=== PATIENT | female | born 1980 | race Caucasian/White ===

== ENCOUNTER 2020-08-28 08:18 | Outpatient (REF) | payer OTHER, SELFPAY ==
[2020-08-28 11:37] LABS: Estimated Average Glucose 103 mg/dL; Hemoglobin A1c % 5.2 %
[2020-08-28 12:05] LABS: Alanine Aminotransferase 72 U/L (0-31); Albumin Level 4.1 g/dL (3.5-5.0); Alkaline Phosphatase 68 U/L (39-117); Anion Gap 17 (12-20); Aspartate Amino Transferase 43 U/L (5-31); Bilirubin Direct < 0.2 mg/dL (0.0-0.5); Bilirubin Total 0.4 mg/dL (0.0-1.0); Blood Urea Nitrogen 8 mg/dL (9-16); Calcium 9.2 mg/dL (8.4-10.2); Carbon Dioxide 19 mmol/L (22-29); Chloride 106 mmol/L (96-108); Estimated Glomerular Filt Rate > 60; Glucose Random 96 mg/dL (60-115); Potassium 3.9 mmol/L (3.3-5.1); Sodium 138 mmol/L (135-145)
[2020-08-29 11:09] LABS: LDL Cholesterol Direct 77 mg/dL (<100)
== END 2020-08-28 08:19 | disposition home or self-care (01) ==
LOC: HO.HMGCLDS 08:18
PROVIDERS: PCP Internal Medicine; Visit Provider Internal Medicine
DX: E66.9 Obesity, unspecified (principal); E78.9 Disorder of lipoprotein metabolism, unspecified; I10 Essential (primary) hypertension; R79.89 Other specified abnormal findings of blood chemistry
CPT/HCPCS: 36415; 80048; 80076; 83036; 83721

== ENCOUNTER 2020-09-18 09:33 | Outpatient (REF) | payer OTHER, SELFPAY ==
[2020-09-22 12:37] LABS: Fentanyl, Ur NEGATIVE
[2020-09-22 12:38] LABS: Norfentanyl, Ur NEGATIVE
== END 2020-09-18 09:34 | disposition home or self-care (01) ==
LOC: HO.LAB 09:33
PROVIDERS: PCP Internal Medicine; Visit Provider Internal Medicine
DX: F10.20 Alcohol dependence, uncomplicated (principal); R79.89 Other specified abnormal findings of blood chemistry
CPT/HCPCS: 80305; 80354; 80364; 80365; 99202

== ENCOUNTER 2021-04-12 09:10 | Outpatient (REF) | payer OTHER, SELFPAY ==
--- NOTE | ~2021-04-12 | XR_ITS ---
EXAMINATION: XR CHEST CLINICAL INFORMATION: Asthma COMPARISON: Previous chest x-ray most recent October 2019 TECHNIQUE: 2 views of the chest were obtained. FINDINGS: The cardiac and mediastinal contours are stable. There is lower lobe bronchial wall thickening. The lungs are otherwise clear. There is no pleural effusion or pneumothorax. There mild degenerative changes of the spine. XR/XR chest 2V IMPRESSION: Lower lobe bronchial wall thickening. No definite evidence of pneumonia.
== END 2021-04-12 09:11 | disposition home or self-care (01) ==
LOC: HO.HMGCX 09:10
PROVIDERS: PCP Internal Medicine; Visit Provider Internal Medicine
DX: J45.909 Unspecified asthma, uncomplicated (principal)
CPT/HCPCS: 71046

== ENCOUNTER 2021-05-08 13:48 | Outpatient (REF) | payer OTHER, SELFPAY ==
[2021-05-08 16:47] LABS: MANUAL DIFF FLAG NO
[2021-05-08 16:51] LABS: Basophils Absolute Auto 0.1 X10*3/uL (0.0-0.2); Basophils Percent Auto 0.7 % (0-2); Eosinophils Absolute Auto 0.2 X10*3/uL (0.0-0.4); Eosinophils Percent Auto 1.3 % (0-4); Hemoglobin 14.6 g/dl (12.0-16.0); Imm Gran Abs Auto 0.04 X10*3/uL (0.00-0.03); Imm Gran Pct Auto 0.3 % (0.0-0.4); Lymphocytes Absolute Auto 3.4 X10*3/uL (1.2-4.9); Lymphocytes Percent Auto 29.4 % (20-40); Mean Corpuscular HGB Conc 32.4 g/dl (31.0-35.0); Mean Corpuscular Volume 92.6 fL (80.0-98.0); Mean Platelet Volume 12.6 fL (9.4-12.3); Monocytes Percent Auto 8.6 % (2-11); Neutrophils Absolute Auto 6.9 x10*3/uL (2.0-8.3); Neutrophils Percent Auto 59.7 % (45-73); Platelet Count 282 X10*3/uL (160-400); Red Blood Count 4.86 X10*6/uL (4.20-5.50); Red Cell Distribution Width 13.2 % (11.0-16.0); White Blood Count 11.5 X10*3/uL (4.8-10.8)
[2021-05-08 17:31] LABS: Alanine Aminotransferase 115 U/L (0-31); Albumin Level 4.3 g/dL (3.5-5.0); Alkaline Phosphatase 75 U/L (39-117); Anion Gap 15 (12-20); Aspartate Amino Transferase 84 U/L (5-31); Bilirubin Total 1.1 mg/dL (0.0-1.0); Blood Urea Nitrogen 11 mg/dL (9-16); Calcium 10.2 mg/dL (8.4-10.2); Carbon Dioxide 22 mmol/L (22-29); Chloride 106 mmol/L (96-108); Estimated Glomerular Filt Rate > 60; Glucose Random 83 mg/dL (60-115); Potassium 3.8 mmol/L (3.3-5.1); Sodium 139 mmol/L (135-145); Total Protein 7.7 g/dL (6.5-8.0)
[2021-05-08 17:47] LABS: TSH reflex Free T4 2.95 uIU/mL (0.32-4.0)
== END 2021-05-08 13:49 | disposition home or self-care (01) ==
LOC: HO.HMGCLDS 13:48
PROVIDERS: PCP Internal Medicine; Visit Provider Internal Medicine
DX: E66.9 Obesity, unspecified (principal); E78.9 Disorder of lipoprotein metabolism, unspecified; F33.2 Major depressive disorder, recurrent severe without psychotic features; I10 Essential (primary) hypertension; R06.02 Shortness of breath; R79.89 Other specified abnormal findings of blood chemistry; Z91.09 Other allergy status, other than to drugs and biological substances
CPT/HCPCS: 36415; 80053; 84443; 85025

== ENCOUNTER → 2021-05-20 14:25 | Outpatient (BNVA) | payer OTHER, SELFPAY | PROVIDERS: PCP Internal Medicine; Visit Provider Internal Medicine | DX: R06.02 Shortness of breath (principal); R06.83 Snoring; G47.33 Obstructive sleep apnea (adult) (pediatric); E66.9 Obesity, unspecified; Z68.39 Body mass index [BMI] 39.0-39.9, adult | CPT/HCPCS: 99202 ==

== ENCOUNTER → 2021-05-22 08:56 | Outpatient (BNVA) | payer OTHER, SELFPAY | PROVIDERS: PCP Internal Medicine; Visit Provider Dietitian, Registered | DX: E66.9 Obesity, unspecified (principal); Z68.39 Body mass index [BMI] 39.0-39.9, adult | CPT/HCPCS: 97802 ==

== ENCOUNTER 2021-05-23 09:48 | Outpatient (REF) | payer OTHER, SELFPAY ==
--- NOTE | ~2021-05-23 | XR_ITS ---
EXAMINATION: XR CHEST CLINICAL INFORMATION: Cough COMPARISON: 04/12/2021 TECHNIQUE: 2 views of the chest were obtained. FINDINGS: There is no acute finding. Lung naik are grossly clear. The cardiac silhouette is comparable. The hilar structures do not appear pathologically enlarged. There is no effusion. XR/XR chest 2V IMPRESSION: No acute finding.
[2021-05-23 11:09] LABS: MANUAL DIFF FLAG NO
[2021-05-23 11:23] LABS: Basophils Absolute Auto 0.1 X10*3/uL (0.0-0.2); Basophils Percent Auto 1.3 % (0-2); Eosinophils Absolute Auto 0.1 X10*3/uL (0.0-0.4); Eosinophils Percent Auto 1.9 % (0-4); Hematocrit 43.9 % (37.0-47.0); Hemoglobin 14.4 g/dl (12.0-16.0); Imm Gran Abs Auto 0.02 X10*3/uL (0.00-0.03); Imm Gran Pct Auto 0.3 % (0.0-0.4); Lymphocytes Absolute Auto 2.4 X10*3/uL (1.2-4.9); Lymphocytes Percent Auto 33.9 % (20-40); Mean Corpuscular HGB Conc 32.8 g/dl (31.0-35.0); Mean Corpuscular Hemoglobin 30.1 pg (27.0-33.0); Mean Corpuscular Volume 91.6 fL (80.0-98.0); Mean Platelet Volume 12.1 fL (9.4-12.3); Monocytes Absolute Auto 0.6 X10*3/uL (0.1-1.2); Monocytes Percent Auto 8.1 % (2-11); Neutrophils Absolute Auto 3.9 x10*3/uL (2.0-8.3); Neutrophils Percent Auto 54.5 % (45-73); Platelet Count 305 X10*3/uL (160-400); Red Blood Count 4.79 X10*6/uL (4.20-5.50); Red Cell Distribution Width 13.2 % (11.0-16.0); White Blood Count 7.2 X10*3/uL (4.8-10.8)
[2021-05-23 11:46] LABS: Alanine Aminotransferase 63 U/L (0-31); Albumin Level 4.3 g/dL (3.5-5.0); Alkaline Phosphatase 65 U/L (39-117); Anion Gap 15 (12-20); Aspartate Amino Transferase 35 U/L (5-31); Bilirubin Total 0.7 mg/dL (0.0-1.0); Blood Urea Nitrogen 9 mg/dL (9-16); Calcium 9.9 mg/dL (8.4-10.2); Carbon Dioxide 21 mmol/L (22-29); Chloride 108 mmol/L (96-108); Estimated Glomerular Filt Rate > 60; Glucose Random 105 mg/dL (60-115); Potassium 3.8 mmol/L (3.3-5.1); Sodium 140 mmol/L (135-145); Total Protein 7.5 g/dL (6.5-8.0)
== END 2021-05-23 09:49 | disposition home or self-care (01) ==
LOC: HO.HMGCLDS 09:48
PROVIDERS: PCP Internal Medicine; Visit Provider Nurse Practitioner Acute Care
DX: R05.3 Chronic cough (principal)
CPT/HCPCS: 36415; 71046; 80053; 85025

== ENCOUNTER → 2021-06-18 13:38 | Outpatient (REF) | payer OTHER, SELFPAY | LOC: HO.SL 13:38 | PROVIDERS: PCP Internal Medicine; Visit Provider Internal Medicine | DX: G47.33 Obstructive sleep apnea (adult) (pediatric) (principal); R06.02 Shortness of breath; R06.83 Snoring; R40.0 Somnolence | CPT/HCPCS: 95806 ==

== ENCOUNTER → 2021-06-21 11:30 | Outpatient (BNVA) | payer OTHER, SELFPAY | PROVIDERS: PCP Internal Medicine; Visit Provider Dietitian, Registered | DX: E66.9 Obesity, unspecified (principal); Z68.37 Body mass index [BMI] 37.0-37.9, adult | CPT/HCPCS: 97803 ==

== ENCOUNTER → 2021-07-26 11:56 | Outpatient (BNVA) | payer OTHER, SELFPAY | PROVIDERS: PCP Internal Medicine; Visit Provider Dietitian, Registered | DX: E66.9 Obesity, unspecified (principal); Z68.35 Body mass index [BMI] 35.0-35.9, adult; E11.9 Type 2 diabetes mellitus without complications; Z71.3 Dietary counseling and surveillance | CPT/HCPCS: 97803 ==

== ENCOUNTER → 2021-08-13 13:38 | Outpatient (BNVA) | payer OTHER, SELFPAY | PROVIDERS: PCP Internal Medicine; Visit Provider Internal Medicine | DX: G47.33 Obstructive sleep apnea (adult) (pediatric) (principal); E66.9 Obesity, unspecified; Z68.34 Body mass index [BMI] 34.0-34.9, adult; F31.9 Bipolar disorder, unspecified; Z99.89 Dependence on other enabling machines and devices | CPT/HCPCS: 99212 ==

== ENCOUNTER → 2021-09-06 10:48 | Outpatient (BNVA) | payer OTHER, SELFPAY | PROVIDERS: PCP Internal Medicine; Visit Provider Dietitian, Registered | DX: E66.9 Obesity, unspecified (principal); Z68.32 Body mass index [BMI] 32.0-32.9, adult; Z71.3 Dietary counseling and surveillance | CPT/HCPCS: 97803 ==

== ENCOUNTER 2021-10-18 07:07 | Outpatient (REF) | payer OTHER, SELFPAY ==
[2021-10-18 11:55] LABS: Alanine Aminotransferase 51 U/L (0-31); Albumin Level 4.2 g/dL (3.5-5.0); Alkaline Phosphatase 49 U/L (39-117); Anion Gap 17 (12-20); Aspartate Amino Transferase 30 U/L (5-31); Bilirubin Total 0.5 mg/dL (0.0-1.0); Blood Urea Nitrogen 15 mg/dL (9-16); Calcium 9.6 mg/dL (8.4-10.2); Carbon Dioxide 22 mmol/L (22-29); Chloride 107 mmol/L (96-108); Estimated Glomerular Filt Rate > 60; Glucose Random 94 mg/dL (60-115); Potassium 4.3 mmol/L (3.3-5.1); Sodium 142 mmol/L (135-145); Total Protein 7.3 g/dL (6.5-8.0)
[2021-10-20 17:02] LABS: LDL Cholesterol Direct 132 mg/dL (<100)
== END 2021-10-18 07:08 | disposition home or self-care (01) ==
LOC: HO.HMGCLDS 07:07
PROVIDERS: PCP Internal Medicine; Visit Provider Internal Medicine
DX: E66.9 Obesity, unspecified (principal); E78.9 Disorder of lipoprotein metabolism, unspecified; F33.2 Major depressive disorder, recurrent severe without psychotic features; F41.1 Generalized anxiety disorder; I10 Essential (primary) hypertension; R79.89 Other specified abnormal findings of blood chemistry; Z91.09 Other allergy status, other than to drugs and biological substances
CPT/HCPCS: 36415; 80053; 83721

== ENCOUNTER → 2021-12-06 09:41 | Outpatient (BNVA) | payer OTHER, SELFPAY | PROVIDERS: PCP Internal Medicine; Visit Provider Dietitian, Registered | DX: E66.9 Obesity, unspecified (principal); Z68.32 Body mass index [BMI] 32.0-32.9, adult | CPT/HCPCS: 97803 ==

== ENCOUNTER 2022-04-17 12:49 | Outpatient (REF) | payer OTHER, SELFPAY ==
[2022-04-17 15:10] LABS: Alanine Aminotransferase 61 U/L (0-31); Albumin Level 4.4 g/dL (3.5-5.0); Alkaline Phosphatase 54 U/L (39-117); Anion Gap 12 (12-20); Aspartate Amino Transferase 35 U/L (5-31); Bilirubin Total 0.4 mg/dL (0.0-1.0); Blood Urea Nitrogen 11 mg/dL (9-16); Calcium 9.1 mg/dL (8.4-10.2); Carbon Dioxide 22 mmol/L (22-29); Chloride 111 mmol/L (96-108); Estimated Glomerular Filt Rate > 60; Glucose Random 87 mg/dL (60-115); Potassium 3.9 mmol/L (3.3-5.1); Sodium 141 mmol/L (135-145); Total Protein 7.3 g/dL (6.5-8.0)
== END 2022-04-17 12:50 | disposition home or self-care (01) ==
LOC: HO.LAB 12:49
PROVIDERS: PCP Internal Medicine; Visit Provider Internal Medicine
DX: E66.9 Obesity, unspecified (principal); E78.9 Disorder of lipoprotein metabolism, unspecified; F33.2 Major depressive disorder, recurrent severe without psychotic features; F41.1 Generalized anxiety disorder; I10 Essential (primary) hypertension; R79.89 Other specified abnormal findings of blood chemistry; Z91.09 Other allergy status, other than to drugs and biological substances; Z71.6 Tobacco abuse counseling
CPT/HCPCS: 36415; 80053; 97803

== ENCOUNTER 2023-10-15 08:18 | Outpatient (AMB) | payer OTHER, SELFPAY ==
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
== END 2023-10-15 09:14 | disposition home or self-care (01) ==
LOC: HO.HMGC 08:18
PROVIDERS: PCP Internal Medicine; Visit Provider Internal Medicine
DX: S82.892A Other fracture of left lower leg, initial encounter for closed fracture (principal); S82.142D Displaced bicondylar fracture of left tibia, subsequent encounter for closed fracture with routine healing; S62.102A Fracture of unspecified carpal bone, left wrist, initial encounter for closed fracture; S83.207A Unspecified tear of unspecified meniscus, current injury, left knee, initial encounter; I10 Essential (primary) hypertension; Z91.09 Other allergy status, other than to drugs and biological substances; F41.1 Generalized anxiety disorder; E78.9 Disorder of lipoprotein metabolism, unspecified; R79.89 Other specified abnormal findings of blood chemistry; K21.9 Gastro-esophageal reflux disease without esophagitis; J30.89 Other allergic rhinitis; Z09 Encounter for follow-up examination after completed treatment for conditions other than malignant neoplasm
CPT/HCPCS: 99214

== ENCOUNTER 2024-01-27 13:51 | Outpatient (AMB) | payer OTHER, SELFPAY ==
[2024-01-27 14:00] VITALS: BP 132/90; PULSE 91; O2SAT 98; BMI 38.7
--- NOTE | 2024-01-27 14:00 | A.OFFPC_ITS ---
Vital Signs 01/27/24 14:00 Height 5 ft 3 in Weight 218 lb 8 oz BMI 38.7 BP 132/90 H Blood Pressure Location Rt brachial Position Sitting Pulse 91 Pulse Source Pulse Oximeter Pulse Oximetry (%) 98 Oxygen Delivery Method Room Air Intake Visit Reasons: PE Allergies No Known Allergies [No Known Allergies*] Allergy (Verified 01/27/24 14:04) Medication List - Last Reconciled 01/27/24 by Donald Yu MD aripiprazole 2 mg PO DAILY bupropion HCl XL (Wellbutrin XL) 300 mg PO QAM cetirizine 10 mg PO DAILY diazepam 2 mg PO DAILY escitalopram oxalate 20 mg PO DAILY fluticasone propionate 50 mcg/actuation (Flonase Allergy Relief) 1 spray intranasal BID montelukast 10 mg PO DAILY 90 days omeprazole 20 mg PO DAILY 30 days topiramate 25 mg PO BID Tobacco use date assessed: 01/27/24 Dental Screening Dental Screen Date: 01/27/24 Did you have a dental visit in the last 12 months?: Yes Did you have a dental problem in the last 6 months where you did not have access to dental care?: No Was dental information given to patient?: Patient has dentist HPI PE HPI Details Chief Complaint The patient is here for a routine physical examination and follow-up on leg pain, rash, and medication management. Patient had fracture of her left tibia still under care orthopedic and having physical therapy until the end of February Patient has BMI of 38.7 she wanted to discuss injectables but since she is not able to exercise at this point I would rather have her recover completely from left tibial fracture GERD is stable with omeprazole refill sent Allergies and allergic rhinitis stable with medications refills sent Only omeprazole montelukast cetirizine Flonase from PCP office For new rash appear in the belly which is round scaly to patches close to umbilicus I have sent Lotrisone If not resolved patient is to get back to me so we can refer her to Dermatology Health Maintenance - Recommended mammogram as it's due, las t done five years ago at age 38. - Patient educated on importance and arr anged for fasting lab testing; deferred during visit. - Encouraged continuation of physical th erapy and graduated activity for weight management post-recovery. - Discussed lifestyle modification for w eight management including dietary adjustments. - Administered flu vaccination during vi sit. Medications - Abilify (mental health disorder) - Wellbutrin (mental health disorder) - Diazepam (mental health disorder) - Lexapro (mental health disorder) - Topamax (mental health disorder) - Omeprazole for gastrointestinal sympto ms (patient has run out) - Nasal spray (for symptom relief of uns pecified condition) Diagnostic results - Past mammogram at age 38 showing dense breast tissue; ultrasound performed but results ultimately normal. Review of Systems - Dermatological: Reports abdominal rash initially thought as bug bite; p rogressing pattern noted. - General: No fever no chills - Neurological: No headaches no dizzin ess - Ear nose throat: No sore throat no hearing difficulty no ear pain - Musculoskeletal: Left lower leg pain recovering from tibial fracture - Cardiovascular: No syncope, no chest pain, no palpitations - Gastrointestinal: No nausea vomiting or diarrhea - Endocrine: No polyuria polydipsia no heat intolerance - Genitourinary: No dysuria - Skin: No new complaints Physical Exam General: Cooperative, healthy appearing, comfortable, no acute distress Orientation: Patient oriented x3 Limitations: Sitting in wheelchair but able to stand and get on examination table Head: Normal to inspection Ears: Within normal limit visually Nose: Normal external nose present Face and sinus: Normal facial exam Eyes: Appearance normal, extraocular movement intact pupils reactive Neck: Normal visual inspection and supple Respiratory: Normal respiratory effort and able to speak in complete sentences. Clear to auscultation, no stridor Cardiovascular: S1 and S2 GI: Normal to inspection. Soft to palpation and nontender, except for a rash on the stomach Skin: Turgor normal, rash present on the stomach, possibly fungal Neuro: Patient oriented x3, motor sensory intact, balance intact, tandem pass Extremities: Normal to inspection, left leg with some swelling, wrist healed normally, hand tool room supervisor strong, some misalignment with the kneecap, torn meniscus and tibial floor issues noted. Patient Instructions - Continue physical therapy and follow t herapist's guidance. - Use prescribed cream for the abdominal rash and monitor its progress; seek engineering and development director input if unresolved. - Maintain dietary efforts and gradual i ncrease in physical activity as recovery progresses. - Schedule and attend mammogram and lab tests as guided. - [facility]; refill nasal spray if needed. - Attend follow-up in six months for fur ther assessment. PFSH Medical History Intolerance of continuous positive airway pressure (CPAP) ventilation Somnolence, daytime UMA (obstructive sleep apnea) Snoring Alcohol use disorder Bipolar 1 disorder LFT elevation Lipid disorder Anxiety, generalized Environmental allergies Depression, major, severe recurrence Hypertension, essential Obesity Surgical History History of breast abscess Family History Father HTN (hypertension) Crohn's disease Mental health disorder Mother Crohn's disease Sister Crohn's disease Social History Housing: House Patient Tobacco Use Status: Never used Tobacco e-Cigarette/Vaping Use: Never Used Second Hand Smoke Exposure: No service: No Current occupational status: disabled Cognitive needs: No Hearing needs: No Vision needs: No Questionnaire PHQ-9 Over the last 2 weeks, how often have you been bothered by any of the following problems? 1. Little interest or pleasure in doing things: several days 2. Feeling down, depressed, or hopeless: several days 3. Trouble falling or staying asleep, or sleeping too much: several days 4. Feeling tired or having little energy: several days 5. Poor appetite or overeating: several days 6. Feeling bad about yourself - or that you are a failure or have let yourself or your family down: several days 7. Trouble concentrating on things, such as reading the newspaper or watching television: several days 8. Moving or speaking so slowly that other people could have noticed. Or the opposite - being so fidgety or restless that you have been moving around a lot more than usual: not at all 9. Thoughts that you would be better off or of hurting yourself in some way: not at all Total score: 7 Depression Screening Interpretation: Negative Depression Screening Done: Yes 18961 - PHQ-9 Billing: Yes Source: Developed by Drs. Elvis Perez, Nicole Condon, Ollie Rivera and colleagues, with an educational frank from [employer]. Thrive Questionnaire Date Thrive assessed: 01/27/24 I am a: Patient What is your living situation today?: I have a steady place to live Within the past 12 months, did the food you bought not last and you didn't have the money to get more?: Never true Within the past 12 months, did you worry whether your food would run out before you got money to buy more?: Never true Do you have trouble paying for medicines?: No Do you have trouble getting transportation to medical appointments?: No Do you have trouble paying your heating and electricity bill?: No Do you have trouble taking care of your child, family member or friend?: No Do you have trouble with day-to-day activities such as bathing, preparing meals, shopping, managing finances, etc.?: No Are you currently unemployed and looking for a job?: No Are you interested in more education?: No Please select the resources that you would like help with: None Currently or been in a relationship where the following occur: No concerns reported THRIVE Score: 0 AUDIT C Alcohol Use Questionnaire (AUDIT-C) 1. How often do you have a drink containing alcohol?: Never 3. How often do you have six or more drinks on one occasion?: Never Total Score: 0 Score Reviewed/Action Taken: Yes MEY-7 AMB Questionnaire MEY-7 Date MEY - 7 assessed: 01/27/24 Feeling nervous, anxious, or on edge: 1 = Several days Not being able to stop or control worryin = Not at all Worrying too much about different things: 0 = Not at all Trouble relaxin = Several days Being so restless that it is hard to sit still: 1 = Several days Becoming easily annoyed or irritable: 0 = Not at all Feeling afraid as if something awful might happen: 0 = Not at all Total MEY-7 score (0-4 normal; 5-9 mild; 10-14 moderate; 15-21 severe): 3 Source: Developed by Drs. Elvis Perez, Nicole Condon, Ollie Rivera and colleagues, with an educational frank from [employer]. MEY-7 Assessment Billing MEY-7 Assessment Tool: MEY-7 Assessment 75084 Physical exam (Primary Care) Vital Signs: Last Vital Signs Pulse 91 01/27/24 14:00 BP 132/90 H 01/27/24 14:00 Pulse Ox 98 01/27/24 14:00 Oxygen Delivery Method Room Air 01/27/24 14:00 BMI result Body Mass Index 38.7 Tobacco/Smoking Status: Tobacco use Status Tobacco use date assessed 01/27/24 01/27/24 14:05 Patient Tobacco Use Status Never used Tobacco 01/27/24 14:05 e-Cigarette/Vaping Use Never Used 01/27/24 14:05 PHQ-9: PHQ-9 Score PHQ-9: Total score 7 01/27/24 14:36 Depression Screening Interpretation: Negative Thrive Assessment: Date of Thrive Assessment Date Thrive assessed 01/27/24 01/27/24 14:05 Currently or been in a relationship where the following occur: No concerns reported Office Procedures Flu Questionnaire Does the patient have a severe egg allergy?: No Does the patient have severe life threatening allergies?: No Does the patient have a fever or illness today?: No Has the patient ever had Guillain-Buff[place] Syndrome?: No Has the patient ever had any past reaction to a flu shot?: No Immunizations Fluarix Triv [id number] (PF) 45 mcg (15 mcg x 3)/0.5 mL IM syringe Performing Provider: Donald Yu MD Performing Location: [facility] Administered by: Meagan Griffith CMA on 01/27/24 14:35 Dose Route Admin Location Dispensed Lot Number Expiration Date [facility] Bacteriology Research Assistant 0.5 mL IM Left Deltoid 0.5 mL [id number] 08/08/24 [id number] [email or web address] VIS Given Date VIS Provided VIS Publication Date 01/27/24 Single Vaccine 20 Eligibility Eligibility Date Funding Source Not [facility] Eligible 01/27/24 Private Coding Level of Care Code Est Pt Level 3 (06737) Est Pt Prev Care 40-64y(64820) Diagnoses Encounter for general adult medical examination with abnormal findings Z00.01 Rash R21 Closed fracture of left tibial plateau with routine healing, subsequent encounter S82.142D Encounter type: subsequent encounter Fracture healing: with routine healing Fracture type: closed Allergic rhinitis due to other allergic trigger, unspecified seasonality J30.89 Allergic rhinitis seasonality: unspecified Allergic rhinitis trigger: other Environmental allergies Z91.09 Chronic GERD K21.9 Bipolar 1 disorder F31.9 Anxiety, generalized F41.1 Severe episode of recurrent major depressive disorder, without psychotic features F33.2 Psychotic features: without psychotic features Class 2 obesity due to excess calories without serious comorbidity with body mass index (BMI) of 38.0 to 38.9 in adult E66.812; E66.09; Z68.38 Body mass index: BMI 38.0-38.9 Obesity classification: adult class 2 (BMI 35 - 39.9) Serious obesity comorbidity presence: without serious comorbidity Additional Codes MEY-7 Assessment Billing - MEY-7 Assessment Tool: MEY-7 Assessment 65268 ([id number]) PHQ-9 - 65063 - PHQ-9 Billing: Yes ([id number]) Assessment & Plan Assessment & Plan (1) Encounter for general adult medical examination with abnormal findings: Code(s): Z00.01 - Encounter for general adult medical examination with abnormal findings Category: Medical (2) Rash: Code(s): R21 - Rash and other nonspecific skin eruption Category: Medical (3) Tibial plateau fracture, left: Code(s): S82.142A - Displaced bicondylar fracture of left tibia, initial encounter for closed fracture Category: Medical Qualifiers: Encounter type: subsequent encounter Fracture healing: with routine healing Fracture type: closed Qualified Code(s): S82.142D - Displaced bico ndylar fracture of left tibia, subsequent encounter for closed fracture with routine healing (4) Allergic rhinitis: Code(s): J30.9 - Allergic rhinitis, unspecified Category: Medical Qualifiers: Allergic rhinitis seasonality: unspecified Allergic rhinitis trigger: other Qualified Code(s): J30.89 - Other allergic rhinitis (5) Environmental allergies: Code(s): Z91.09 - Other allergy status, other than to drugs and biological substances Category: Medical (6) Chronic GERD: Code(s): K21.9 - Gastro-esophageal reflux disease without esophagitis Category: Medical (7) Bipolar 1 disorder: Code(s): F31.9 - Bipolar disorder, unspecified Category: Medical (8) Anxiety, generalized: Code(s): F41.1 - Generalized anxiety disorder Category: Medical (9) Depression, major, severe recurrence: Code(s): F33.2 - Major depressive disorder, recurrent severe without psychotic features Category: Medical Qualifiers: Psychotic features: without psychotic features Qualified Code(s): F33.2 - Major depressive disorder, recurrent severe without psychotic features (10) Obesity due to excess calories: Code(s): E66.09 - Other obesity due to excess calories Category: Medical Qualifiers: Body mass index: BMI 38.0-38.9 Obesity classification: adult class 2 (BMI 35 - 39.9) Serious obesity comorbidity presence: without serious comorbidity Qualified Code(s): E66.812 - Obesity, class 2; E66.09 - Other obesity due to excess calories; Z68.38 - Body mass index [BMI] 38.0-38.9, adult Plan Chief Complaint The patient is here for a routine physical examination and follow-up on leg pain, rash, and medication management. Patient had fracture of her left tibia still under care orthopedic and having physical therapy until the end of February Patient has BMI of 38.7 she wanted to discuss injectables but since she is not able to exercise at this point I would rather have her recover completely from left tibial fracture GERD is stable with omeprazole refill sent Allergies and allergic rhinitis stable with medications refills sent Only omeprazole montelukast cetirizine Flonase from PCP office For new rash appear in the belly which is round scaly to patches close to umbilicus I have sent Lotrisone If not resolved patient is to get back to me so we can refer her to Dermatology Health Maintenance - Recommended mammogram as it's due, last done five years ago at age 38. - Patient educated on importance and arranged for fasting lab testing; deferred during visit. - Encouraged continuation of physical therapy and graduated activity for weight management post-recovery. - Discussed lifestyle modification for weight management including dietary adjustments. - Administered flu vaccination during visit. Medications - Abilify (mental health disorder) - Wellbutrin (mental health disorder) - Diazepam (mental health disorder) - Lexapro (mental health disorder) - Topamax (mental health disorder) - Omeprazole for gastrointestinal symptoms (patient has run out) - Nasal spray (for symptom relief of unspecified condition) Diagnostic results - Past mammogram at age 38 showing dense breast tissue; ultrasound performed but results ultimately normal. Review of Systems - Dermatological: Reports abdominal rash initially thought as bug bite; progressing pattern noted. - General: No fever no chills - Neurological: No headaches no dizziness - Ear nose throat: No sore throat no hearing difficulty no ear pain - Musculoskeletal: Left lower leg pain recovering from tibial fracture - Cardiovascular: No syncope, no chest pain, no palpitations - Gastrointestinal: No nausea vomiting or diarrhea - Endocrine: No polyuria polydipsia no heat intolerance - Genitourinary: No dysuria - Skin: No new complaints Physical Exam General: Cooperative, healthy appearing, comfortable, no acute distress Orientation: Patient oriented x3 Limitations: Sitting in wheelchair but able to stand and get on examination table Head: Normal to inspection Ears: Within normal limit visually Nose: Normal external nose present Face and sinus: Normal facial exam Eyes: Appearance normal, extraocular movement intact pupils reactive Neck: Normal visual inspection and supple Respiratory: Normal respiratory effort and able to speak in complete sentences. Clear to auscultation, no stridor Cardiovascular: S1 and S2 GI: Normal to inspection. Soft to palpation and nontender, except for a rash on the stomach Skin: Turgor normal, rash present on the stomach, possibly fungal Neuro: Patient oriented x3, motor sensory intact, balance intact, tandem pass Extremities: Normal to inspection, left leg with some swelling, wrist healed normally, hand tool room supervisor strong, some misalignment with the kneecap, torn meniscus and tibial floor issues noted. Patient Instructions - Continue physical therapy and follow therapist's guidance. - Use prescribed cream for the abdominal rash and monitor its progress; seek engineering and development director input if unresolved. - Maintain dietary efforts and gradual increase in physical activity as recovery progresses. - Schedule and attend mammogram and lab tests as guided. - Obtain prescribed medications from pharmacy; refill nasal spray if needed. - Attend follow-up in six months for further assessment. 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 - Disorder of lipoprotein metabolism, unspecified, F31.9 - Bipolar disorder, unspecified, F33.2 - Major depressive disorder, recurrent severe without psychotic features, F41.1 - Generalized anxiety disorder, J30.89 - Other allergic rhinitis, K21.9 - Gastro-esophageal reflux disease without esophagitis, S82.142D - Displaced bicondylar fracture of left tibia, subsequent encounter for closed fracture with routine healing, Z00.01 - Encounter for general adult medical examination with abnormal findings, Z91.09 - Other allergy status, other than to drugs and biological substances Vitamin D 25-OH (D2 and D3) Today E66.09 - Other obesity due to excess calories, E78.9 - Disorder of lipoprotein metabolism, unspecified, F31.9 - Bipolar disorder, unspecified, F33.2 - Major depressive disorder, recurrent severe without psychotic features, F41.1 - Generalized anxiety disorder, J30.89 - Other allergic rhinitis, K21.9 - Gastro-esophageal reflux disease without esophagitis, S82.142D - Displaced bicondylar fracture of left tibia, subsequent encounter for closed fracture with routine healing, Z00.01 - Encounter for general adult medical examination with abnormal findings, Z91.09 - Other allergy status, other than to drugs and biological substances Influenza [id number] Immunization Today Z23 - Encounter for immunization Complete Blood Count Auto Diff Today E66.09 - Other obesity due to excess calories, E78.9 - Disorder of lipoprotein metabolism, unspecified, F31.9 - Bipolar disorder, unspecified, F33.2 - Major depressive disorder, recurrent severe without psychotic features, F41.1 - Generalized anxiety disorder, J30.89 - Other allergic rhinitis, K21.9 - Gastro-esophageal reflux disease without esophagitis, S82.142D - Displaced bicondylar fracture of left tibia, subsequent encounter for closed fracture with routine healing, Z00.01 - Encounter for general adult medical examination with abnormal findings, Z91.09 - Other allergy status, other than to drugs and biological substances Comprehensive Wolf. Panel Fast Today E66.09 - Other obesity due to excess calories, E78.9 - Disorder of lipoprotein metabolism, unspecified, F31.9 - Bipolar disorder, unspecified, F33.2 - Major depressive disorder, recurrent severe without psychotic features, F41.1 - Generalized anxiety disorder, J30.89 - Other allergic rhinitis, K21.9 - Gastro-esophageal reflux disease without esophagitis, S82.142D - Displaced bicondylar fracture of left tibia, subsequent encounter for closed fracture with routine healing, Z00.01 - Encounter for general adult medical examination with abnormal findings, Z91.09 - Other allergy status, other than to drugs and biological substances Lipid Panel Today E66.09 - Other obesity due to excess calories, E78.9 - Disorder of lipoprotein metabolism, unspecified, F31.9 - Bipolar disorder, unspecified, F33.2 - Major depressive disorder, recurrent severe without psychotic features, F41.1 - Generalized anxiety disorder, J30.89 - Other allergic rhinitis, K21.9 - Gastro-esophageal reflux disease without esophagitis, S82.142D - Displaced bicondylar fracture of left tibia, subsequent encounter for closed fracture with routine healing, Z00.01 - Encounter for general adult medical examination with abnormal findings, Z91.09 - Other allergy status, other than to drugs and biological substances Medications: New clotrimazole-betamethasone 1-0.05 % 1 appl topical ONCE 45 grams 0RF 30 days Refilled cetirizine 10 mg PO DAILY 90 tabs 1RF Z91.09 - Other allergy status, other than to drugs and biological substances fluticasone propionate 50 mcg/actuation (Flonase Allergy Relief) administer into each nostril 1 spray intranasal BID 16 grams 3RF montelukast 10 mg PO DAILY 90 tabs 1RF allergies 90 days omeprazole 20 mg PO DAILY 90 caps 1RF 30 days
== END 2024-01-27 14:43 | disposition home or self-care (01) ==
PROVIDERS: PCP Internal Medicine; Visit Provider Internal Medicine
DX: Z00.00 Encounter for general adult medical examination without abnormal findings (principal); R21 Rash and other nonspecific skin eruption; F31.9 Bipolar disorder, unspecified; S82.142D Displaced bicondylar fracture of left tibia, subsequent encounter for closed fracture with routine healing; J30.89 Other allergic rhinitis; Z91.09 Other allergy status, other than to drugs and biological substances; K21.9 Gastro-esophageal reflux disease without esophagitis; F41.1 Generalized anxiety disorder; E66.812 Obesity, class 2; Z68.38 Body mass index [BMI] 38.0-38.9, adult; Z23 Encounter for immunization

== ENCOUNTER → 2024-01-27 13:51 | Outpatient (BNVA) | payer OTHER, SELFPAY | PROVIDERS: PCP Internal Medicine; Visit Provider Internal Medicine | DX: Z00.01 Encounter for general adult medical examination with abnormal findings (principal); Z23 Encounter for immunization; R21 Rash and other nonspecific skin eruption; S82.142D Displaced bicondylar fracture of left tibia, subsequent encounter for closed fracture with routine healing; J30.89 Other allergic rhinitis; K21.9 Gastro-esophageal reflux disease without esophagitis; F41.1 Generalized anxiety disorder; F33.2 Major depressive disorder, recurrent severe without psychotic features; E66.09 Other obesity due to excess calories; Z68.38 Body mass index [BMI] 38.0-38.9, adult; Z91.09 Other allergy status, other than to drugs and biological substances; Z71.3 Dietary counseling and surveillance | CPT/HCPCS: 90471; 90656; 96127; 99212; 99396 ==

== ENCOUNTER 2024-02-19 10:58 | Outpatient (AMB) | payer OTHER, SELFPAY ==
--- NOTE | 2024-02-19 11:46 | AM.OFFWIN_ITS ---
Intake Vital Signs 02/19/24 11:48 Height 5 ft 3 in Weight 218 lb BMI 38.6 BP 128/82 Blood Pressure Location Lt brachial Position Sitting Pulse 76 Pulse Source Pulse Oximeter Pulse Oximetry (%) 99 Oxygen Delivery Method Room Air Intake Visit Reasons: EP ?Cyst RT underarm/breast area Intake Note: Pt is here today for a walk in visit. Pt c/o lumps under her R armpit. Patient Tobacco Use Status: Never used Tobacco Allergies No Known Allergies [No Known Allergies*] Allergy (Verified 02/19/24 11:48) HPI HPI Comments History of Present Illness Details History of Present Illness - The patient is a 43-year-old female pr esenting with tender masses in the axillary region. - Masses noticed two days ago, described as round and tender, with one lower and one higher in the axilla. - Firm and indurated, with no drainage o r response to topical acne treatment. - Patient has a history of MRSA infectio n from over a decade ago. Physical Exam General: Cooperative, healthy appearing, comfortable, no acute distress and well developed Orientation: Patient oriented x3 Limitations: No limitations Head: Normal to inspection Ears: Hearing grossly normal bilaterally Nose: Normal external nose present Face and sinus: Normal facial exam Eyes: Appearance normal, both eyes and all related structures Neck: Normal visual inspection and Yes full ROM Respiratory: Normal respiratory effort and able to speak in complete sentences. Skin: right axilla deep 1cm round firm ttp nodule, 1cm round indurated and tender lump inferior to axilla, no drainage noted for either Neuro: Patient oriented x3 Extremities: Normal to inspection PFSH Medical History Intolerance of continuous positive airway pressure (CPAP) ventilation Somnolence, daytime UMA (obstructive sleep apnea) Snoring Alcohol use disorder Bipolar 1 disorder LFT elevation Lipid disorder Anxiety, generalized Environmental allergies Depression, major, severe recurrence Hypertension, essential Obesity Surgical History History of breast abscess Family History Father HTN (hypertension) Crohn's disease Mental health disorder Mother Crohn's disease Sister Crohn's disease Social History Housing: House Patient Tobacco Use Status: Never used Tobacco e-Cigarette/Vaping Use: Never Used Second Hand Smoke Exposure: No service: No Current occupational status: disabled Cognitive needs: No Hearing needs: No Vision needs: No Review of Systems Const All systems reviewed & are unremarkable except as noted in HPI and below Physical Exam Vital Signs: Last Vital Signs Pulse 76 02/19/24 11:48 BP 128/82 02/19/24 11:48 Pulse Ox 99 02/19/24 11:48 Oxygen Delivery Method Room Air 02/19/24 11:48 BMI result Body Mass Index 38.6 Assessment & Plan Assessment & Plan (1) Abscess: Code(s): L02.91 - Cutaneous abscess, unspecified Plan: Plan The patient will commence treatment with Keflex cephalexin and doxycycline to cover potential Methicillin-resistant Staphylococcus aureus MRSA) and other bacterial infections responsible for the axillary masses. Keflex will be taken four times a day and doxycycline twice daily for a one-week course. The patient is advised to avoid dairy while on doxycycline due to potential gastrointestinal issues. A topical chlorhexidine preparation, such as Hibiclens, is recommended for axillary hygiene and bacterial load reduction. If the symptoms do not improve or worsen after the antibiotic course, an ultrasound may be necessary to rule out abscess vs lymphadenopathy. It is also advised to follow up with Dr. Yu should there be no resolution of symptoms, with the prescription for the medications sent electronically to the designated pharmacy. Patient was informed and verbally consented to the use of an ambient scribe for clinic note documentation during this visit. Medications: New cephalexin 500 mg PO Q6H 28 caps 0RF doxycycline hyclate 100 mg PO BID 14 tabs 0RF Coding Level of Care Code Est Pt Level 3 (94663) Diagnoses Abscess L02.91
[2024-02-19 11:48] VITALS: BP 128/82; PULSE 76; O2SAT 99; BMI 38.6
== END 2024-02-19 13:50 | disposition home or self-care (01) ==
PROVIDERS: PCP Internal Medicine; Visit Provider Physician Assistant
DX: L02.91 Cutaneous abscess, unspecified (principal)

== ENCOUNTER → 2024-02-19 10:58 | Outpatient (BNVA) | payer OTHER, SELFPAY | PROVIDERS: PCP Internal Medicine; Visit Provider Physician Assistant | DX: L02.91 Cutaneous abscess, unspecified (principal) | CPT/HCPCS: 99212 ==

== ENCOUNTER 2024-05-02 11:11 | Outpatient (REF) | payer OTHER, SELFPAY | END 2024-05-02 11:12 | disposition home or self-care (01) | LOC: HO.MAMMO 11:11 | PROVIDERS: PCP Internal Medicine; Visit Provider Internal Medicine | DX: Z12.31 Encounter for screening mammogram for malignant neoplasm of breast (principal) | CPT/HCPCS: 77063; 77067 ==

== ENCOUNTER → 2024-05-02 11:15 | Outpatient (BNV) | payer OTHER, SELFPAY | PROVIDERS: PCP Internal Medicine; Visit Provider Internal Medicine | DX: Z12.31 Encounter for screening mammogram for malignant neoplasm of breast (principal) | CPT/HCPCS: 77063; 77067 ==

== ENCOUNTER 2024-12-12 09:02 | Outpatient (AMB) | payer OTHER, SELFPAY ==
[2024-12-12 09:15] VITALS: BP 142/98; PULSE 87; TEMP 36.5; O2SAT 97; BMI 37.4
--- NOTE | 2024-12-12 09:15 | AM.OFFWIN_ITS ---
Intake Vital Signs 12/12/24 09:15 Height 5 ft 3 in Weight 211 lb BMI 37.4 BP 142/98 H Blood Pressure Location Lt brachial Position Sitting Pulse 87 Pulse Source Pulse Oximeter Temp 97.7 F Temp Source Oral Pulse Oximetry (%) 97 Oxygen Delivery Method Room Air Comment High pt; patient reports drinking espresso this morning and anxiety. Intake Visit Reasons: ep swollen left eye very painful Intake Note: pt presents with LT eye redness, swelling, pain with slight itch and discharge beginning yesterday Patient Tobacco Use Status: Never used Tobacco Allergies No Known Allergies (No Known Allergies*) Allergy (Verified 12/12/24 09:19) Do you need a note to return to daycare/school/sports/work: No HPI HPI Comments History of Present Illness Details 44 y/o Female patient who presents to [facility] walk in clinic with c/o left eye swelling and redness that began yesterday and has progressively worsened. Reports mild pain around the eye, especially with movement. Denies trauma or foreign body exposure. Denies vision loss, double vision, or photophobia. Denies fever, chills, or recent illness. No history of allergies or insect bites. She usually wears contact lens. She does admit to using a different eyeliner this weekend. [facility] Medical History (Updated 12/12/24 @ 10:16 by Mary Webb NP) Orbital swelling Intolerance of continuous positive airway pressure (CPAP) ventilation Somnolence, daytime UMA (obstructive sleep apnea) Snoring Alcohol use disorder Bipolar 1 disorder LFT elevation Lipid disorder Anxiety, generalized Environmental allergies Depression, major, severe recurrence Hypertension, essential Obesity Surgical History History of breast abscess Family History Father HTN (hypertension) Crohn's disease Mental health disorder Mother Crohn's disease Sister Crohn's disease Social History Housing: House Patient Tobacco Use Status: Never used Tobacco e-Cigarette/Vaping Use: Never Used Second Hand Smoke Exposure: No service: No Current occupational status: disabled Cognitive needs: No Hearing needs: No Vision needs: No Review of Systems Const All systems reviewed & are unremarkable except as noted in HPI and below Physical Exam Vital Signs: Last Vital Signs Temp 97.7 F 12/12/24 09:15 Pulse 87 12/12/24 09:15 BP 142/98 H 12/12/24 09:15 Pulse Ox 97 12/12/24 09:15 Oxygen Delivery Method Room Air 12/12/24 09:15 BMI result Body Mass Index 37.4 Const General: comfortable and no acute distress Nutritional Appearance: obese Orientation/consciousness: patient oriented x3 HEENT Head: Yes normocephalic Ears: external ears normal and TM abnormal with fluid behind the TM bilateral General nose exam: Abnormal mucous membranes and turbinates present boggy and erythematous Face and sinus: Yes sinuses nontender Mouth: moist mucous membranes Throat: Yes uvula midline Eyes Other: Left lower eyelid: erythematous, swollen, and tender to palpation. Mild warmth noted over the periorbital area. No discharge or crusting observed. Periorbital: periorbital findings abnormal left periorbital swelling, periorbital tenderness and periorbital erythema Pupils: Equal, round and reactive pupils present EOM: EOMs intact bilaterally Direct Ophthalmoscopy: normal light reflex Resp Effort & Inspection: normal respiratory effort Cardio Rhythm: regular rhythm Neuro General: patient oriented x3 Cranial nerves: Yes Equal, round and reactive pupils present Assessment & Plan Assessment & Plan (1) Orbital swelling: Code(s): H05.229 - Edema of unspecified orbit Plan: Primary Diagnosis: Preseptal cellulitis of the left eye (Infection localized anterior to orbital septum; no vision changes or proptosis noted.) Differential Diagnoses: Orbital cellulitis (to be ruled out if worsening pain, vision change, or proptosis), Allergic reaction, Sinusitis-related inflammation or Insect bite reaction. Advised to call her doctor today. Start Amoxicillin-clavulanate (Augmentin) 875/125 mg PO BID x 10 days. Ibuprofen 400 mg PO q6h PRN for pain/swelling. Warm compresses to affected eye TID. Medications: New amoxicillin 875 mg PO Q12H 20 tabs 0RF 10 days H05.229 - Edema of unspecified orbit Coding Level of Care Code Est Pt Level 4 (92941) Diagnoses Orbital swelling H05.229 Time Spent (min) 20
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
== END 2024-12-12 10:10 | disposition home or self-care (01) ==
PROVIDERS: PCP Internal Medicine; Visit Provider Nurse Practitioner Family
DX: H05.229 Edema of unspecified orbit (principal)

== ENCOUNTER → 2024-12-12 09:02 | Outpatient (BNVA) | payer OTHER, SELFPAY | PROVIDERS: PCP Internal Medicine; Visit Provider Nurse Practitioner Family | DX: H05.012 Cellulitis of left orbit (principal) | CPT/HCPCS: 99212 ==